=== PATIENT | female | born 1955 | race Caucasian/White ===

== ENCOUNTER 2023-12-22 09:44 | Emergency (ER) | payer MEDICARE ==
[~2023-12-22] VITALS: Ht 167.6 cm; Wt 64.0 kg
[2023-12-22] MEDS ORDERED: Cyclobenzaprine Hydrochlorid 10 MG TAB PO ONE (10:05)
[2023-12-22] MEDS ORDERED: Dexamethasone Sodium Phospha 20 MG/5 ML VIAL IM ONE (10:05)
[2023-12-22] MEDS ORDERED: Acetaminophen/Hydrocodone 5 MG/325 MG TABLET PO ONE (10:05)
[2023-12-22] MEDS ORDERED: PREDNISONE50 MG PO (11:34)
[2023-12-22] MEDS ORDERED: CYCLOBENZAPRINE10 MG PO (11:34)
[2023-12-22] MEDS ORDERED: HYDROCODONE-AC1 EAC1 PO (11:34)
== END 2023-12-22 11:42 | disposition home or self-care (01) ==
LOC: ED 09:44
DX: S39.012A Strain of muscle, fascia and tendon of lower back, initial encounter (principal); Z91.040 Latex allergy status; Z88.5 Allergy status to narcotic agent; X50.1XXA Overexertion from prolonged static or awkward postures, initial encounter; Y93.89 Activity, other specified; Y92.89 Other specified places as the place of occurrence of the external cause; Y99.8 Other external cause status